=== PATIENT | male | born 1950 | race Caucasian/White ===

== ENCOUNTER 2018-06-06 06:36 | Emergency (ER) | payer BC, MEDICARE ==
[2018-06-06 06:42] VITALS: RESP 18; TEMP 98.4
[2018-06-06] MEDS ORDERED: predniSONE 50 MG TAB PO STA (07:40)
[2018-06-06] MEDS ORDERED: HYDROmorphone 1 MG/ML 1 ML SYRINGE IM STA (07:42)
[2018-06-06] MEDS ORDERED: ONDANSETRON 4 MG TAB PO STA (07:43)
--- NOTE | 2018-06-06 07:54 | ED ---
General Adult HPI - General Chief complaint: Back Pain/Injury Stated complaint: sciatica pain Time Seen by Provider: 06/06/18 07:00 Source: patient, RN notes reviewed Mode of arrival: ambulatory Limitations: no limitations - History of Present Illness Initial comments: This is a 68-year-old male who presents emergency department with past medical history significant for sciatica. Patient states the last week and a half he's had pain in his lower back and radiates down into his leg and particularly is distal leg. Patient states if he sits certain ways the leg becomes very tingly. Patient states there is no position that he is found of comfort yet. Patient denies any urinary retention or incontinence. Patient states she's already seen his primary received some steroids and Kiana. Patient denies any injury or trauma. Patient denies any area of swelling erythema or palpable tenderness. Patient states if he sits on his left buttocks the pain is less but he does get some tingling in his lower leg. Patient denies any fever chills. - Related Data Previous Rx's Medication Instructions Recorded predniSONE 40 mg PO DAILY #8 tab 06/06/18 Allergies Allergy/AdvReac Type Severity Reaction Status Date / Time No Known Allergies Allergy Verified 06/06/18 06:42 Review of Systems ROS Statement: Those systems with pertinent positive or pertinent negative responses have been documented in the HPI. ROS Other: All systems not noted in ROS Statement are negative. Past Medical History Past Medical History: Hyperlipidemia History of Any Multi-Drug Resistant Organisms: None Reported Past Surgical History: No Surgical Hx Reported Past Psychological History: No Psychological Hx Reported Smoking Status: Current some day smoker Past Alcohol Use History: None Reported Past Drug Use History: None Reported General Exam - General Exam Comments Initial Comments: GENERAL: Patient is well-developed and well-nourished. Patient is nontoxic and well- hydrated and is in moderate distress. ENT: Neck is soft and supple. No significant lymphadenopathy is noted. Oropharynx is clear. Moist mucous membranes. Neck has full range of motion without eliciting any pain. EYES: The sclera were anicteric and conjunctiva were pink and moist. Extraocular movements were intact and pupils were equal round and reactive to light. Eyelids were unremarkable. SKIN: Skin is clear with no lesions or rashes and otherwise unremarkable. NEUROLOGIC: Patient is alert and oriented x3. Cranial nerves II through XII are grossly intact. Motor and sensory are also intact. Normal speech, volume and content. Symmetrical smile. Straight leg is positive at 30 on the left MUSCULOSKELETAL: Normal extremities with adequate strength and full range of motion. No lower extremity swelling or edema. No calf tenderness. LYMPHATICS: No significant lymphadenopathy is noted PSYCHIATRIC: Normal psychiatric evaluation. Limitations: no limitations Course Vital Signs 06/06/18 06:37 Temperature 98.4 F Pulse Rate 77 Respiratory 18 Rate Blood Pressure 161/89 O2 Sat by Pulse 98 Oximetry Disposition Clinical Impression: Sciatica Disposition: HOME SELF-CARE Condition: Good Instructions: Sciatica (ED) Prescriptions: predniSONE 40 mg PO DAILY #8 tab Is patient prescribed a controlled substance at d/c from ED?: No Referrals: Brut Vivas MD [Primary Care Provider] - 1-2 days Time of Disposition: 08:56
--- NOTE | 2018-06-06 08:18 | XR ---
EXAMINATION TYPE: XR lumbosacral spine min 4V , 5 YEARS DATE OF EXAM ORDERED: 06/06/2018 HISTORY: Pain. COMPARISON: None. FINDINGS: There is a grade 1 spondylolisthesis of L5 on S1. This is likely degenerative. Vertebral b richard alignment is otherwise unremarkable. There is diffuse disc space loss with relative sparing at L4-5. There is minor hypertrophic spondylos is at virtually all levels with relative sparing at L5-S1. There is mild, diffuse facet arthropathy. The pedicles are intact. IMPRESSION: 1. NO ACUTE OSSEOUS LESION. 2. PROBABLE DEGENERATIVE 1 SPONDYLOLISTHESIS OF L5 ON S1. THIS CAN BE CONFIRMED WITH A NONEMERGENT CT . 3. DEGENERATIVE CHANGE.
[2018-06-06] MEDS ORDERED: KETOROLAC 30 MG/ML 1 ML VIAL IM STA (08:49)
[2018-06-06 09:03] VITALS: BP 143/83; PULSE 86
== END 2018-06-06 09:03 | disposition home or self-care (01) ==
LOC: EC 06:36
DX: M54.40 Lumbago with sciatica, unspecified side (principal); F17.200 Nicotine dependence, unspecified, uncomplicated
CPT/HCPCS: 72110; 99283; 96372 ×2; J1885; J1170; J7512

== ENCOUNTER 2021-11-16 09:10 | Day surgery (SDC) | payer MEDICARE ==
[2021-11-14 13:34] VITALS: BMI 24.3
[~2021-11-16 09:10] MED LIST: LACTATED RINGERS 1,000 ML IV SCH
[2021-11-16] MEDS ORDERED: LACTATED RINGERS 1,000 ML IV ONE (09:46)
[2021-11-16 09:55] VITALS: TEMP 97.8
[2021-11-16] MEDS ORDERED: LIDOCAINE 1% INJ 10MG/ML (20 ML MDV) ONE (11:00)
[2021-11-16] MEDS ORDERED: PROPOFOL 10 MG/ML 20 ML VIAL IV ONE (11:00)
--- NOTE | 2021-11-16 11:15 | P.PCN ---
Date of Procedure: 11/16/21 Procedure(s) Performed: BRIEF HISTORY: Patient is a 71-year-old pleasant white male scheduled for an elective colonoscopy as a part of screening for colorectal neoplasia. PROCEDURE PERFORMED: Colonoscopy. PREOPERATIVE DIAGNOSIS: Screening for colon cancer. IV sedation per Anesthesia. PROCEDURE: After informed consent was obtained, the patient, was brought into the endoscopy unit. IV sedation was administered by Anesthesia under continuous monitoring. Digital rectal examination was normal. Initially the Olympus CF-160 flexible video colonoscope was then inserted in the rectum, gradually advanced into the cecum without any difficulty. Careful examination was performed as the scope was gradually being withdrawn. Ileocecal valve and the appendiceal orifice were visualized and appeared normal. Prep was excellent. Mucosa of the cecum, ascending colon, transverse colon, descending colon, sigmoid colon, and rectum appeared normal. scattered sigmoid diverticulosis Retroflexion was performed in the rectum and no lesions were seen. The patient tolerated the procedure well. IMPRESSION: Normal-appearing colon from rectum to cecum with no evidence of colorectal. Scattered sigmoid diverticulosis. RECOMMENDATIONS: Findings of this examination were discussed with the patient [as well as his family. He was advised to have a repeat screening colonoscopy in 10 years.
[2021-11-16 11:19] VITALS: RESP 16
[2021-11-16 11:36] VITALS: BP 141/76; PULSE 77
== END 2021-11-16 11:42 | disposition home or self-care (01) ==
LOC: ORWHC2ENDO 09:10
PROVIDERS: ATTEND Internal Medicine Gastroenterology
DX: Z12.11 Encounter for screening for malignant neoplasm of colon (principal); K57.30 Diverticulosis of large intestine without perforation or abscess without bleeding
CPT/HCPCS: G0121; J2001; J2704